=== PATIENT | male | born 1980 | race Caucasian/White ===

== ENCOUNTER 2018-12-02 18:39 | Emergency (ER) | payer OTHER ==
[2018-12-02 18:55] VITALS: BP 123/65
[2018-12-02] MEDS ORDERED: KETOROLAC TROMETHAMINE 60 MG/2 ML SDV IM ONE (19:28)
[2018-12-02] MEDS ORDERED: LIDOCAINE 5% (700 MG) TRANSDERMAL ADH..PATCH TP ONE (19:28)
--- NOTE | 2018-12-02 19:30 | ER Document Report ---
ED Medical Screen (RME) - General Chief Complaint: Low Back Pain Stated Complaint: LOW BACK PAIN Time Seen by Provider: 12/02/18 19:25 Mode of Arrival: Ambulatory Information source: Patient Notes: Patient is a 38-year male presents emergency department chief complaint of lumbar back pain. Patient reports the pain radiates down into his bilateral buttocks and to the back of his knees. He denies any saddle anesthesia, denies any urinary retention or bowel incontinence. 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 Patient also states that he has what might be an abscess to his groin. He denies any urinary symptoms. Exam: Tenderness to palpation to bilateral lumbar paraspinous muscles. I have greeted and performed a rapid initial assessment of this patient. A comprehensive ED assessment and evaluation of the patient, analysis of test results and completion of the medical decision making process will be conducted by additional ED providers. Dictation of this chart was performed using voice recognition software; therefore, there may be some unintended grammatical errors. TRAVEL OUTSIDE OF THE [place] IN LAST 30 DAYS: No - Related Data Allergies/Adverse Reactions: No Known Allergies Allergy (Unverified 12/02/18 18:42) Physical Exam - Vital signs Vitals: Temp Pulse Resp BP Pulse Ox 98.1 F 68 16 123/65 98 12/02/18 18:53 12/02/18 18:53 12/02/18 18:53 12/02/18 18:53 12/02/18 18:53 Course - Vital Signs Vital signs: Temp Pulse Resp BP Pulse Ox 98.1 F 68 16 123/65 98 12/02/18 18:53 12/02/18 18:53 12/02/18 18:53 12/02/18 18:53 12/02/18 18:53
--- NOTE | 2018-12-02 22:00 | ER Document Report ---
Doctor's Note Notes: I attempted to evaluate the patient in room 6 where the patient was placed via nursing staff. Upon my arrival to the room patient has eloped. Nursing staff states they have not seen the patient. It appears patient has eloped. I did not do any sort of medical assessment or evaluation of this patient.
== END 2018-12-02 21:30 | disposition left against medical advice (07) ==
LOC: ER 18:39
DX: M54.5 Low back pain (principal); Z53.20 Procedure and treatment not carried out because of patient's decision for unspecified reasons
CPT/HCPCS: 99281; 96372; J1885